=== PATIENT | male | born 1950 ===

== ENCOUNTER 2017-10-18 12:01 | Inpatient (IN) | payer MEDICAID, OTHER ==
[~2017-10-18] VITALS: Ht 167.6 cm; Wt 65.8 kg
--- NOTE | 2017-10-18 12:10 | NUR ---
Dr Vickers at the bedside for eval and eval.
--- NOTE | 2017-10-18 12:15 | NUR ---
Pt states He dosen't want to change to hospital gown since he is cold.
[2017-10-18 12:36] LABS: BASOPHILS # (AUTO) 0.1 K/uL (0.0-8.0); BASOPHILS % (AUTO) 1.4 % (0.0-2.0); EOSINOPHILS # (AUTO) 0.1 K/uL (0.0-0.7); EOSINOPHILS % (AUTO) 1.2 % (0.0-7.0); HEMATOCRIT 29.9 % (36.7-47.1); HEMOGLOBIN 9.3 g/dL (12.5-16.3); LYMPHOCYTES # (AUTO) 1.2 K/uL (20.0-40.0); LYMPHOCYTES % (AUTO) 18.6 % (20.5-51.5); MEAN CORPUSCULAR HGB CONC 31 g/dL (32.5-36.3); MEAN CORPUSCULAR VOLUME 93.1 fL (73.0-96.2); MONOCYTES # (AUTO) 0.8 K/uL (2.0-10.0); MONOCYTES % (AUTO) 11.8 % (0.0-11.0); NEUTROPHILS # (AUTO) 4.3 K/uL (1.8-8.9); PLATELET COUNT (AUTO) 174 K/uL (152-348); RED BLOOD CELL COUNT(AUTO) 3.21 MIL/uL (4.06-5.63); WHITE BLOOD COUNT (AUTO) 6.4 K/uL (3.6-10.2)
[2017-10-18 12:38] LABS: CREATININE 2.8 mg/dL (0.6-1.3); POTASSIUM 5.1 mmol/L (3.5-5.1)
[2017-10-18 12:55] LABS: BILIRUBIN,DIRECT 0.4 mg/dL (0.0-0.2); BILIRUBIN,TOTAL 0.5 mg/dL (0.2-1.0); TOTAL PROTEIN, SERUM 7.9 g/dL (6.4-8.2)
[2017-10-18] MEDS ORDERED: INSU100V7 SQ (13:01)
[2017-10-18] MEDS ORDERED: ATOR80TA PO (13:01)
[2017-10-18] MEDS ORDERED: IBUP-1955 PO ×2 (13:01→18:14)
[2017-10-18] MEDS ORDERED: FURO20TA4 PO ×2 (13:01→18:14)
[2017-10-18] MEDS ORDERED: SACU1TAB7 PO ×2 (13:01→18:15)
[2017-10-18] MEDS ORDERED: ASPI81TA31 PO (13:01)
[2017-10-18] MEDS ORDERED: FERR325T24 PO (13:01)
[2017-10-18] MEDS ORDERED: GABA-532 PO (13:01)
[2017-10-18] MEDS ORDERED: CARV6.252 PO (13:01)
--- NOTE | 2017-10-18 13:06 | NUR ---
MRSA collected and sent to Lab, belonging list completed.
--- NOTE | 2017-10-18 14:07 | NUR ---
Pt. admitted to TELE , under care of Dr. LOPEZ Belongs List completed
--- NOTE | 2017-10-18 14:40 | NUR ---
RECEIVED PATIENT FROM ER VIA [facility] ACCOM[facility]AN[facility] BY MISAEL THURSTON. STABLE CONDITION. NO ACUTE DISTRESS NOTED. WITH PERIORBITAL SWELLING. HEPLOCK ON THE LEFT FOREARM #22, SKIN INTACT. INFORMED DR. RAMACHANDRAN FOR ADMISSION ORDERS. WILL CONTINUE TO MONITOR CLOSELY.
[2017-10-18] MEDS ORDERED: DEXTROSE 50% 50 ML DISP.SYRIN IV PRN (15:00)
[2017-10-18] MEDS ORDERED: hydrALAZINE HCL 25 MG TABLET PO PRN (15:00)
[2017-10-18] MEDS ORDERED: ACETAMINOPHEN 325 MG TABLET PO PRN (15:00)
[2017-10-18] MEDS ORDERED: ONDANSETRON 4 MG/2 ML VIAL IV PRN (15:00)
[2017-10-18] MEDS ORDERED: MAGNESIUM HYDROXIDE 30 ML LIQUID UDC PO PRN (15:15)
[2017-10-18] MEDS ORDERED: BISACODYL 5 MG TABLET.DR PO PRN (15:15)
[2017-10-18 15:28] VITALS: BP 154/57
[2017-10-18] MEDS: FUROSEMIDE 40 MG/4 ML VIAL IV SCH ×2 (15:56→21:38)
[2017-10-18] MEDS: BLOOD SUGAR DIAGNOSTIC 1 EACH STRIP VI SCH ×2 (16:25→21:38)
[2017-10-18] MEDS: INSULIN REGULAR, HUMAN 300 UNIT/3 ML VIAL SQ PRN ×2 (16:28→21:43)
[2017-10-18] MEDS: GABAPENTIN 100 MG CAPSULE PO SCH (16:44)
--- NOTE | 2017-10-18 18:00 | NUR ---
IV SITE ON THE LEFT FORE ARM # 22 INFILTRATED. JANESSA CHARGE NURSE RESTARTED IV SITE ON THE RIGHT HAND #22 WITH GOOD VENOUS RETURN, INTACT AND PATENT. WILL CONTINUE TO MONITOR CLOSELY.
[2017-10-18 20:00] VITALS: BP 111/54
[2017-10-18] MEDS: ATORVASTATIN 40 MG TABLET PO SCH (21:39)
[2017-10-18] MEDS: CARVEDILOL 6.25 MG TABLET PO SCH (21:40)
[2017-10-18] MEDS: INSULIN GLARGINE,HUM 300 UNITS/3 ML CARTRIDGE SQ SCH (21:41)
[2017-10-19] VITALS: BP 120/54
[2017-10-19] MEDS ORDERED: ATROPINE SULFATE 1 MG/10 ML DISP.SYRIN IV ONE (01:09)
[2017-10-19] MEDS ORDERED: EPINEPHRINE 1:10,000 1 MG/10 ML DISP.SYRIN IV ONE (01:09)
[2017-10-19] MEDS ORDERED: CALCIUM CHLORIDE 1 GM/10 ML DISP.SYRIN IV ONE (01:09)
[2017-10-19] MEDS ORDERED: SODIUM BICARBONATE 8.4% 50 MEQ/50 ML DISP.SYRIN IV ONE (01:09)
[2017-10-19 04:00] VITALS: BP 102/41
[2017-10-19 06:29] LABS: BASOPHILS # (AUTO) 0.1 K/uL (0.0-8.0); BASOPHILS % (AUTO) 0.8 % (0.0-2.0); EOSINOPHILS # (AUTO) 0.1 K/uL (0.0-0.7); EOSINOPHILS % (AUTO) 1.3 % (0.0-7.0); HEMATOCRIT 29.2 % (36.7-47.1); HEMOGLOBIN 8.9 g/dL (12.5-16.3); LYMPHOCYTES # (AUTO) 1.4 K/uL (20.0-40.0); LYMPHOCYTES % (AUTO) 18.7 % (20.5-51.5); MEAN CORPUSCULAR HEMOGLOBIN 28.4 uug (23.8-33.4); MEAN CORPUSCULAR HGB CONC 31 g/dL (32.5-36.3); MEAN CORPUSCULAR VOLUME 92.7 fL (73.0-96.2); MONOCYTES # (AUTO) 0.8 K/uL (2.0-10.0); MONOCYTES % (AUTO) 10.3 % (0.0-11.0); NEUTROPHILS # (AUTO) 5.2 K/uL (1.8-8.9); NEUTROPHILS % (AUTO) 68.9 % (38.5-71.5); PLATELET COUNT (AUTO) 168 K/uL (152-348); RED BLOOD CELL COUNT(AUTO) 3.15 MIL/uL (4.06-5.63); WHITE BLOOD COUNT (AUTO) 7.5 K/uL (3.6-10.2)
[2017-10-19] MEDS: BLOOD SUGAR DIAGNOSTIC 1 EACH STRIP VI SCH ×4 (06:35→22:40)
--- NOTE | 2017-10-19 07:10 | NUR ---
RECEIVED REPORT FROM BLIND ESCORT NURSE, PATIENT IN BED ASLEEP, NO EVIDENCE OF DISTRESS NOTED, BED IN LOW POSITION, SIDE RAILS UP X2.
[2017-10-19 07:25] LABS: MAGNESIUM 2.4 mg/dL (1.8-2.4); PHOSPHOROUS 6.6 mg/dL (2.5-4.9); POTASSIUM 5.3 mmol/L (3.5-5.1)
[2017-10-19] MEDS ORDERED: ASPIRIN 81 MG TAB.CHEW PO SCH (09:00)
[2017-10-19] MEDS ORDERED: FERROUS SULFATE 325 MG TABEC PO SCH (09:00)
[2017-10-19] MEDS: CARVEDILOL 6.25 MG TABLET PO SCH ×3 (09:00→22:29)
[2017-10-19] MEDS: FUROSEMIDE 40 MG/4 ML VIAL IV SCH ×2 (09:12→22:29)
[2017-10-19] MEDS: GABAPENTIN 100 MG CAPSULE PO SCH ×2 (09:14→17:42)
[2017-10-19] MEDS ORDERED: LEVOFLOXACIN 250MG /D5W 250 MG in PREMIXED 1 EACH IV SCH (10:00)
--- NOTE | 2017-10-19 10:00 | NUR ---
INSERTED RESENDIZ CATHETER PER REQUEST OF DR. LOPEZ. COLLECTED SPECIMEN AND SENT TO LAB ALONG WITH BM.
[2017-10-19 11:05] VITALS: BP 140/65
[2017-10-19] MEDS: INSULIN REGULAR, HUMAN 300 UNIT/3 ML VIAL SQ PRN ×2 (12:54→17:44)
[2017-10-19 14:56] VITALS: BP 125/59
--- NOTE | 2017-10-19 18:31 | NUR ---
Patient is currently in bed asleep, no evidence of distress noted at this time. Patients periorbital edema has significantly gone down since this morning. patient currently has a amaro catheter draining yellow, clear urine. Patient intermittently tries to get out of bed on his own. Patient is very weak and cannot stand on his own. pt eval was conducted today, and patient was very lethargic.
--- NOTE | 2017-10-19 19:00 | NUR ---
Received pt in bed, alert and orientedx2.Tele reading Sinus Rhythm
--- NOTE | 2017-10-19 19:30 | NUR ---
Pt. trying to get out of bed, wanting to go to Bathroom to have a bowel movement, assisted by TECHNICAL STAFF ENGINEER but no BM.
[2017-10-19 20:00] VITALS: BP 123/63
--- NOTE | 2017-10-19 20:10 | NUR ---
Back to bed, call light within reach.
[2017-10-19 20:13] LABS: *OCCULT BLOOD STOOL NEGATIVE (NEGATIVE)
[2017-10-19] MEDS: INSULIN GLARGINE,HUM 300 UNITS/3 ML CARTRIDGE SQ SCH (21:00)
--- NOTE | 2017-10-19 21:00 | NUR ---
Pt. attempted to get OOB, refusing to have manager cardiac cath on; assisted to BR.
--- NOTE | 2017-10-19 22:20 | NUR ---
Back to bed. removed cardiac cath lab technologist-last Tele reading- SR.
[2017-10-19] MEDS: ATORVASTATIN 40 MG TABLET PO SCH (22:28)
--- NOTE | 2017-10-19 22:35 | NUR ---
Pt. found unresponsive in bed. No pulse and Bp noted.
--- NOTE | 2017-10-19 22:40 | NUR ---
Brandy Malcolm called, Cpr initiated. Brandy Malcolm Team arrived and responded appropriately. Resuscitation measures unsuccessful.
--- NOTE | 2017-10-19 23:02 | NUR ---
Dr. Maria D Aragon pronounced pt's expiration.
--- NOTE | 2017-10-19 23:10 | NUR ---
Dr. Manoj North notified pt's regarding expiration
--- NOTE | 2017-10-19 23:15 | NUR ---
Phone # for next of kin called and according to the person who answered the phone- pt. has no family here in [place]
--- NOTE | 2017-10-19 23:20 | NUR ---
Postmortem Care rendered and appropriate paperworks completed.
[2017-10-19 23:43] VITALS: BP 123/63
--- NOTE | 2017-10-20 01:10 | NUR ---
Demise brought down to [facility] via gurney.
[2017-10-20] MEDS ORDERED: PANTOPRAZOLE SODIUM 40 MG TABLET.DR PO SCH (07:00)
--- NOTE | 2017-10-22 14:03 | NUR ---
This SW, along with assistance from [employer] Director Roshan Mills, contacted the patient's "person to notify" as listed on the face sheet in order to obtain name/contact information for next of kin who live in [facility]. Due to language barrier, Roshan assisted with communicating in [place]. Bisi Bourgeois was called at [phone], who referred Roshan to Brenda Stern. Brenda was contacted at [phone], who stated that the has a nephew in [facility] named Harpreet. Roshan asked for Harpreet's phone number, which Brenda provided [phone]. Brenda also stated that the nephew Harpreet has emailed a letter to Brenda's son (Bret Stern) giving authorization to release the body to Brenda and her son. Roshan asked if this letter could be forwarded to the hospital, and Brenda stated that Roshan can contact her son Bret at [phone] and talk to him directly regarding the letter. Roshan then called Bret, but was unable to connect with him--voicemail message left for Bret to either call this SW back or email the letter to SW (SW's phone # and email address provided in the voicemail). This ELIZABETH and Roshan tried calling the nephew in [facility], but unable to make an international call from the hospital phones. Jose Manuel in IT notified, who stated that they will put in a request with the [employer] office to temporarily enable an international line for SW's phone in order to contact next of kin in [facility]. Waiting to hear back from IT. Director Rachel Givens informed of above.
--- NOTE | 2017-10-22 16:58 | NUR ---
Karl from IT called SW and stated that international call access was authorized for SW. ELIZABETH and house worker general Roshan tried calling family in [facility] again, but was unsuccessful once again. Roshan contacted Karl in IT, who suggested to contact the IT help desk for further assistance. Roshan to follow-up.
--- NOTE | 2017-10-22 17:39 | NUR ---
Roshan called IT [employer], ELIZABETH present in the room. [employer] could not locate the initial ticket request for international calling access, but stated that they will open up another ticket. New ticket # is [id number]. Roshan requested for the ticket to be processed urgently. Awaiting call back from IT for international call access.
--- NOTE | 2017-10-23 10:32 | NUR ---
SW received an email last night from the nephew of the , which included a notorized letter stating that the sister of the , Cierra Bar, was giving authorization to [facility] to release the body to a family friend in [place], Crystal Childress. Nurse Director Of [employer] Roshan Mills was given a copy of this letter.
--- NOTE | 2017-10-23 10:34 | NUR ---
ELIZABETH met with nurse environmental services supervisor Roshan Mills this morning, who stated that he spoke with Cierra, sister of the . Roshan stated that [facility] security vehicle patrol officer Ricky Cooper was also present during the phone call as a witness to the conversation. Roshan confirmed the content of the notarized letter with Cierra and also obtained verbal consent from Cierra authorizing [facility] to release her brother's body to [facility] ([facility]). Roshan stated that he also spoke with Brenda and informed her that the body can be released to her. Brenda was in agreement. A confirmation letter of signed by nursing environmental services supervisor Roshan will be provided to Brenda. Nursing environmental services supervisor Melissa also informed of above.
== END 2017-10-20 01:10 | disposition expired | DRG 194 ==
LOC: ER 12:07 → TELE 14:14
PROVIDERS: ADMIT Internal Medicine; ATTEND Internal Medicine
PROC: 0BH17EZ Insertion of Endotracheal Airway into Trachea, Via Natural or Artificial Opening (ICD-10-PCS; principal; 2017-10-20)
PROC: 5A12012 Performance of Cardiac Output, Single, Manual (ICD-10-PCS; principal; 2017-10-20)
DX: I13.0 Hypertensive heart and chronic kidney disease with heart failure and stage 1 through stage 4 chronic kidney disease, or unspecified chronic kidney disease (principal); I21.9 Acute myocardial infarction, unspecified; N17.9 Acute kidney failure, unspecified; E11.22 Type 2 diabetes mellitus with diabetic chronic kidney disease; R60.1 Generalized edema; N18.4 Chronic kidney disease, stage 4 (severe); H05.223 Edema of bilateral orbit; Z79.4 Long term (current) use of insulin; Z79.82 Long term (current) use of aspirin; Z79.899 Other long term (current) drug therapy; I25.10 Atherosclerotic heart disease of native coronary artery without angina pectoris; Z88.0 Allergy status to penicillin; Z95.1 Presence of aortocoronary bypass graft; R09.02 Hypoxemia; D64.9 Anemia, unspecified; I50.42 Chronic combined systolic (congestive) and diastolic (congestive) heart failure
CPT/HCPCS: 36415; 70030-TC; 71045; 76770; 83550; 83735; 84100; 84156; 84300; 85025; 85730; 93005; 93307; A4663; J0171; J0461; J1815; J1940; J1956; J3490; J7040